=== PATIENT | female | born 1995 | race Caucasian/White ===

== ENCOUNTER 2024-06-04 11:54 | Day surgery (SDC) | payer OTHER, SELFPAY ==
[2024-06-02 15:12] VITALS: BMI 28.5
[2024-06-04] VITALS (12 sets, daily range): BP systolic 107–133; BP diastolic 52–81; PULSE 63–108; RESP 10–20; TEMP 36.3–36.6; O2SAT 91–100; BMI 28.3
--- NOTE | 2024-06-04 | PATH_ITS ---
[facility] Accession Number: [id number] No. of containers..01 Tissue . 01 Material submitted: . uterus - UTERUS AND BILATERAL FALLOPIAN TUBES . 01 Diagnosis: UTERUS AND BILATERAL FALLOPIAN TUBES; HYSTERECTOMY AND BILATERAL SALPINGECTOMIES: Uterine weight: 58 grams. Cervix: Mild chronic inflammation and focal atrophic changes, please see microscopic description, with associated mild reactive atypia; negative for dysplasia and malignancy. Benign weakly proliferative endometrium. Negative for adenomyosis, on appliance service representative sections. Negative for leiomyomas, per gross description. Bilateral fallopian tubes: Benign with paratubal cyst. Negative for atypia and malignancy. [facility] 06/10/2024 1557 Local . 01 Electronically signed: . Ebony Marcus MD, Pathologist NPI- [id number] . 01 Gross description: . Received in formalin, labeled with two identifiers and uterus and bilateral fallopian tubes, is an intact uterus (58 g, 7.2 cm from superior to inferior, 4.6 cm from medial to lateral, 3.0 cm from anterior to posterior) with attached cervix (2.7 x 2.4 cm), left fallopian tube (6.8 x 0.4 cm), right fallopian tube (7.0 x 0.6 cm), with no additional adnexa. . The ectocervix is violaceous and smooth with a long purple suture at 12 o'clock with no designation per the requisition and a patulous os measuring 0.3 cm in diameter. The anterior margin is inked blue while the posterior margin is inked black. The serosa is hernández to violaceous with no hemorrhage or adhesion identified. The endocervical canal has hernández herringbone mucosa and measures 2.4 cm in length. The endometrial cavity measures 2.1 cm from cornu to cornu and 3.1 cm in length with pink, velvety endometrium that averages 0.2 cm thick with no lesions identified. The myometrium is hernández and mildly trabecular, measuring up to 1.4 cm in maximum thickness with no nodules or lesions identified. Both tubes have violaceous, smooth serosa with cystic structure measuring up to 0.8 cm in greatest dimension, filled with clear serous fluid. The lumens are stellate and unremarkable. . Materials Intern sections are submitted as follows: A1: Anterior cervix. A2: Posterior cervix. A3: Anterior full-thickness section. A4: Posterior full-thickness section. A5: Left fallopian tube to include one-half of bisected fimbriae and cross sections. A6: Right fallopian tube to include one-half of bisected fimbriae and cross sections. ([id number]) /[facility] 06/10/2024 [facility]7 Local . 01 Microscopic: . Microscopic examination of the uterine cervix reveals mild chronic inflammation and focal atrophy with mild squamous atypia. To better evaluate these areas and rule out dysplasia, immunostains are performed with the following results: . P16 (performed on blocks A1 and A2) shows no abnormal overexpression on the areas of interest, and the proliferation marker Ki-67 (blocks A1 and A2) shows no increased positivity. . These immunohistochemical results, along with the morphology, support reactive-type atypia secondary to atrophy. . * This test was developed and its performance characteristics determined by [employer]. It has not been cleared or approved by the U.S. Food and Drug Administration. The FDA has determined that such clearance or approval is not necessary. This test is used for clinical purposes. It should not be regarded as investigational or for research. . 01 Pathologist provided ICD-10: N80.9, F64.9 . 01 CPT . 227718, O97021, M05534 Specimen Comment: A courtesy copy of this report has been sent to [facility] Performed at: [address] [address], [place], [place] [id number] MD Zay Mace MD Phone: [phone]
[2024-06-04] MEDS: LACTATED RINGERS 1,000 ML 42 ML IV ×2 (12:30→16:03)
[2024-06-04] MEDS: ACETAMINOPHEN 325 MG TABLET 975 MG PO (12:32)
--- NOTE | 2024-06-04 12:57 | PM.PREOP ---
Pre-operative Note Interval Note History & Physical reviewed/Exam performed by Physician: Yes Changes to H&P: No H&P completed within 30 days and has changed as indicated here:: See H&P from 05/19. We again discussed the surgical plan and approach. They would prefer that if I am unable to complete the surgery laparoscopically, but would be able to complete it abdominally, then to do so. They desire to have their cervix removed, even if this would require conversion to laparotomy. Will proceed with surgery as discussed.
[2024-06-04] MEDS: SCOPOLAMINE 1 PATCH TOP (13:14)
[2024-06-04] MEDS: CEFAZOLIN 2 GM/100 ML PREMIX 100 ML IV (13:32)
--- NOTE | 2024-06-04 14:03 | SUR.OPER ---
Lithotomy on padded OR bed. [place] Pad Positioner under torso. Head on pillow, arms padded and tucked at sides. Legs secured in padded yellow fins stirrups.
--- NOTE | 2024-06-04 16:23 | P.OP_ITS ---
Operative Date/Time/Diagnoses Date of procedure: 06/04/24 Time of procedure: 13:30 Pre-op diagnosis: 1. History of endometriosis 2. Gender dysphoria Post-op diagnosis: same Procedure & Clinicians Procedure: Total laparoscopic hysterectomy Bilateral salpingectomy Cystoscopy Vaginal laceration repair Same procedure as scheduled: Yes Indications: 28yo transgender male with history of endometriosis, desiring definitive management and gender affirming surgery. Surgeon: Roxana Styles [employer]orating [employer] Assembly Supervisor: Elissa Rhodes Anesthesia Type: General Operative Notes Findings: Normal appearing uterus, bilateral fallopian tubes, and bilateral ovaries. Normal appearing liver edge and gallbladder. Appendix not visualized. Vagina with narrow canal and narrow band 2-3cm caudal to the cervix. Specimen(s): other (uterus, cervix, bilateral fallopian tubes) Applied: catheter Estimated Blood Loss (mL): 200 Blood products transfused: none Procedure in detail: The risks, benefits, indications and alternatives of the procedure were reviewed with the patient and informed consent was obtained. The pt was taken to the operating room where general anesthesia was obtained without difficulty. The pt was then placed in the low lithotomy position using Hussein Stirrups and arms were tucked with padding. Sequential compression devices were placed bilaterally for VTE prophylaxis. She was then prepped and draped in the sterile fashion and a Mcmahon catheter was placed. She received 2g Ancef for surgical prophylaxis. A small V-care uterine manipulator was able to be placed through the cervix into the uterus for uterine manipulation. Attention was then turned to the patient?s abdomen were a 5mm skin incision was made in the inferior aspect of the umbilicus after injecting 0.25% Marcaine. A 5mm trocar and sleeve were then carefully introduced into the peritoneal cavity under direct visualization at a 90-degree angle while tenting up the abdominal wall. Intra-peritoneal placement was confirmed under direct visualization with the laparoscope with entry pressure <5 mmHg. A pneumoperitoneum was obtained with several liters of CO2 gas, maximum pressure of 15 mmHg. Upon entry into the peritoneal cavity, structures immediately below the incision were inspected and found to be free of injury. A survey of the patient's abdomen and pelvis was notable for the above findings. Three additional 5mm port sites, one in the right lateral side and two in the left lateral side, were placed under direct laparoscopic guidance. The Powerseal device was then used to clamp, cut, and ligate the left fallopian tube from the mesosalpinx. The utero-ovarian and round ligaments were then clamped, cut, and ligated. The anterior broad ligament was then incised along the bladder reflection and the bladder was dissected off the lower uterine segment until endopelvic fascia was visualized. The uterine artery was then identified, skeletonized, and ligated on the left. The uterosacral ligament and cardinal ligament were transected on the left. Attention was then directed to the right side, where the same procedure was done to clamp, cut, and ligate the right fallopian tube and right side of the uterus. The anterior colpotomy was then made using the Bovie L-hook and continued circumferentially inferior to the cervix using the colpotomy ring as a guide. The entire cervix and uterus was then successfully amputated and delivered through the vagina. The 0 Stratafix suture was then introduced into the abdominal cavity via the vagina. The vaginal cuff was then closed laparoscopically with the barbed suture in a running fashion. The suture needle was removed via the lateral port under direct visualization. The pelvis was then irrigated and suctioned, and a small area of bleeding at the left side of the colpotomy was cauterized with Powerseal and Bovie cautery. Excellent hemostasis was then noted along all of the pelvic pedicles. The mcmahon catheter was then removed, and the cystoscope was then primed and advanced through the urethra and into the bladder. Both ureteral orifices were identified and bilateral efflux of urine was visualized. A survey of the bladder did not show defects or visible suture. The cystoscope was then removed and the bladder was drained, and the mcmahon catheter was replaced. A speculum was then placed in the vagina to inspect for any trauma due to uterine manipulator placement and removal of the uterus. There was a vaginal laceration at the cephalad portion of the vagina that was bleeding, thus this was repaired with 3-0 Vicryl suture in a running fashion. At the end of the repair, the vaginal tissues appeared hemostatic. The pneumoperitoneum was then released, and the remaining ports were removed. The skin incisions were then reapproximated using 4-0 monocryl suture in a subcuticular fashion and covered with Dermabond. At the completion of the case the sponge and needle counts were correct x 2, and all instruments were confirmed to be removed from the vagina. The patient was taken to the PACU in stable condition. Complications: none Post-operative Condition: stable Disposition: PACU Plan for aftercare: Plan for overnight in the hospital with discharge to home in the morning.
[2024-06-04] MEDS: OXYCODONE IR 5 MG TABLET PO (16:55)
[2024-06-04] MEDS: KETOROLAC 30 MG/ML VIAL IV (22:05)
[2024-06-05 00:40] VITALS: BP 108/57; PULSE 90; RESP 20; O2SAT 100
[2024-06-05] MEDS: KETOROLAC 30 MG/ML VIAL IV ×2 (04:25→09:48)
[2024-06-05 04:36] VITALS: BP 124/62; PULSE 89; RESP 19; O2SAT 98
[2024-06-05] MEDS: ACETAMINOPHEN 325 MG TABLET 650 MG PO (07:00)
[2024-06-05 08:00] VITALS: BP 113/58; PULSE 97; RESP 18; TEMP 37.4; O2SAT 97
--- NOTE | 2024-06-05 08:00 | CM.DANOTE ---
Initial DCP Assessment Note Pt is a 28 yo transgender male , resident of [place], now POD#1 from: Total laparoscopic hysterectomy Bilateral salpingectomy Cystoscopy Vaginal laceration repair PCP: Nimo Tovar Payer: Toya Benz Reviewed chart, patient lives independently with spouse and roommates in [place]. Patient has planned for discharge home, DC order from provider has already been initiated this morning. No barriers identified at this time to patient's safe discharge home w/family to assist; close outpatient f/u recommended. CM team will plan to follow clinical course closely in case any DC needs or concerns arise. HÉCTOR Lennon Discharge Planning/Care Management CM Discharge Assessment Start: 06/05/24 07:58 Freq: Status: Active Protocol: Document 06/05/24 07:58 ALBERTINA (Rec: 06/05/24 07:59 ALBERTINA [id number]) Discharge Planning Assessment Assigned Auto Body Builder Apprentice HÉCTOR Cabrera DPOA/Assigned Designee Name Penny Boogie, darling Contact Information [phone] Advance Directives? No History Provided By Patient Comment lives with spouse and two roommates Household Members spouse Type of transporation used prior to Drives own vehicle admit Independent with ADL's Yes Is patient alert and oriented? Yes Barriers to Discharge No Discharge Plan Home Transportation Arrangement Spouse Referrals Initiated None needed
--- NOTE | 2024-06-05 08:01 | PM.DS.1 ---
History of Present Illness History of Present Illness Date Patient Seen: 06/05/24 Time Patient Seen: 08:02 Chief complaint: Total Lap hysterectomy w/viky salpingectomy *OPB* Narrative: Patient is a 28-year-old postop day # 1 status post gender affirming total laparoscopic hysterectomy with bilateral salpingectomy. The Mark catheter was removed but patient has not voided yet. They have tolerated a diet. They are ambulating independently. There pain is well controlled. They are passing flatus. They have not had any nausea or vomiting. Discharge Providers Provider Discharge Date: 06/05/24 Primary care physician: Nimo Tovar MD Discharge provider: Elissa Rhodes MD Summary Hospital Course Discharge Diagnosis: Gender dysphoria Total laparoscopic hysterectomy with bilateral salpingectomy Hospital Course: Patient is a 28-year-old who underwent a gender affirming total laparoscopic hysterectomy with bilateral salpingectomy on June 04, 2024 without complication. The postoperative course was unremarkable. Status at Discharge Cognitive/behavioral status at discharge: oriented Functional status at discharge: independent ambulation Overall status at discharge: patient is progressing back to baseline Time Spent with Patient Time spent: Less than 30 minutes Exam Vital Signs (past 8 hours): - 06/05/24 00:40 06/05/24 04:36 Pulse Rate 90 89 Respiratory Rate 20 19 Blood Pressure 108/57 L 124/62 Pulse Oximetry 100 98 Oxygen Delivery Method CPAP Narrative Exam Narrative: Generally: Patient ambulating in the room, no acute distress Lungs: Clear to auscultation bilaterally Cardiovascular: Regular rate and rhythm Abdomen: Soft, appropriately tender Incisions: Clean dry and intact with Dermabond Extremities: Negative Homans, no edema [facility] Medical History (Updated 05/19/24 @ 11:42 by Roxana Styles DO) Opioid dependence in remission Anxiety and depression Sleep apnea Asthma Endometriosis determined by laparoscopy Gender dysphoria in adult Surgical History (Updated 05/19/24 @ 11:42 by Roxana Styles DO) H/O knee surgery (~2017) S/P laparotomy with lysis of adhesions (~2015) Social History household members: spouse Smoking Status: Never smoker alcohol intake: current substance use type: marijuana Discharge Assessment & Plan Assessment and Plan Assessment: Postop day # 1 status post gender affirming total laparoscopic hysterectomy with bilateral salpingectomy Patient doing very well Plan of Treatment: Discharge to home Follow-up in [address] Styles Patient to call with fever, chills, redness or drainage around the incisions, or bleeding vaginally more than light Discharge Plan Discharge Plan Patient Disposition: Home Provider Discharge Comment: Call with fever, chills, redness or drainage around incisions or bleeding vaginally more than light Ibuprofen 600mg every 6 hours as needed Tylenol 650 mg every 6 hours as needed Discharge orders & Medications Discharge Orders: Discharge (Order); Ordered 06/05/24 Ordered By: Elissa Rhodes Prescriptions: New oxycodone 5 mg tablet 5 mg PO Q4H PRN (Reason: pain) Qty: 20 0RF Continued testosterone cypionate 200 mg/mL oil See Rx Instructions .ROUTE .COMPLEX Rx Instructions: 200 mg intramuscularly citalopram 20 mg tablet 20 mg PO DAILY tretinoin 0.025 % cream 1 applic topical DAILY clindamycin phosphate 1 % solution 1 applic topical DAILY Discontinued estradiol 10 mcg tablet 10 mcg vaginal 2XW Follow up/Referrals: Roxana Styles DO [Physician] - (Patient has postop visit scheduled 06/19/24) Diet/Activity/Treatments Diet: Regular Activity: No heavy lifting for the first week You many shower daily. No scrubbing over the incisions Skin/Wound/Dressing Care Report to your healthcare provider any signs of infection, such as:: chills, fever, increased pain, unusual drainage and unusual redness Dressing: You have surgical glue over the incisions Do not remove Visit Report/Discharge Packet Instructions: DI for Hysterectomy, DI for Laparoscopy, DI for Prescription Opioid Use Stand Alone Forms: Patient Portal/API, Surgery Discharge Discharge Data Primary Care Provider: Nimo Tovar Attending Provider: Roxana Styles
--- NOTE | 2024-06-05 11:11 | PC.NURSE ---
Day shift: Paperwork signed and all questions answered. Pain has been well controlled per MAR. Left unit via WC at approx 1120. Taken by MONET Oconnell. Pt has all personal belongings. New MD script sent electronic to Pt's pharmacy. Pt's friend is driving them home today back to [place].
== END 2024-06-05 11:14 | disposition home or self-care (01) ==
LOC: OR 11:55 → AC 17:10
PROVIDERS: PCP Psychiatry & Neurology Neurology; Referring Provider Student in an Organized Health Care Education/Training Program; Visit Provider Student in an Organized Health Care Education/Training Program
PROC: 0UT94ZZ Resection of Uterus, Percutaneous Endoscopic Approach (ICD-10-PCS; CPT 58571; principal; 2024-06-04 13:30)
DX: N72 Inflammatory disease of cervix uteri (principal); F64.9 Gender identity disorder, unspecified; N83.8 Other noninflammatory disorders of ovary, fallopian tube and broad ligament
CPT/HCPCS: 58571; J0330; J0690; J1100; J1885; J2405; J2704; J3010; J3490